=== PATIENT | male | born 1985 | race Caucasian/White ===

== ENCOUNTER 2018-11-20 12:19 | Emergency (ER) | payer OTHER ==
[2018-11-20] MEDS: DIPHTH/TET/ACEL PERTUSS (ADULT) 0.5 ML VIAL IM* (14:43)
== END 2018-11-20 15:12 | disposition home or self-care (01) ==
LOC: FTE 12:19
DX: S61.237A Puncture wound without foreign body of left little finger without damage to nail, initial encounter (principal); W31.1XXA Contact with metalworking machines, initial encounter; Y92.9 Unspecified place or not applicable
CPT/HCPCS: 90471; 90715; 99283-25